=== PATIENT | male | born 1965 | race American Indian/Alaskan Native ===

== ENCOUNTER 2016-06-21 13:44 | Emergency (ER) | payer OTHER ==
--- NOTE | 2016-06-21 16:10 | XRay Report ---
Right knee 2 views: History: Fall. Findings: The articular surface of the medial and lateral compartment appears intact. There is suspicion of fracture noted inferior aspect of the patellae. Also no fluid in the suprapatellar bursa. Impression: Suspicion of fracture inferior patella. Radiographic of patella recommended.
[2016-06-21] MEDS ORDERED: ZOFRAN ODT PO ONE (16:43)
[2016-06-21] MEDS ORDERED: DILAUDID IM ONE (16:43)
[2016-06-21] MEDS ORDERED: TORADOL IM ONE (16:44)
[2016-06-21 18:27] VITALS: BP 114/66
--- NOTE | 2016-06-21 19:06 | Emergency Department Report ---
Entered by JUAN RAMON PATEL, acting as scribe for VIVIEN MALONE PA. ED Lower Extremity HPI - General Chief Complaint: Extremity Injury, Lower Stated Complaint: KNEE INJURY/PAIN Time Seen by Provider: 06/21/16 16:03 Source: patient, EMS Mode of arrival: Wheelchair Limitations: No Limitations - History of Present Illness Initial Comments: 51 year old male presents to the ED for evaluation of right knee pain today. Patient reports he was playing basketball this afternoon when he twisted his right knee and fell to ground. He reports pain with movement, weight bearing, and palpation of area but notes no pain with immobilization. Treatments prior to arrival include ice and pamela bandage but no medications. Denies any numbness or tingling to toes and states pain is localized to right knee. Denies hitting head, LOC, or additional injuries from fall. MD Complaint: knee injury, fall -: This afternoon Injury: Knee: Right (pain) Type of Injury: other ("twist") Place: other (basketball court) Severity: severe Severity scale (0 -10): 10 (with movement) Improves With: cold therapy, immobilization Worsens With: weight bearing, movement, palpation Context: fall, direct blow, other ("twisted" while playing basketball and fell to ground) Associated Symptoms: swelling, unable to bear weight. denies: numbness, tingling, ambulatory Treatments Prior to Arrival: cold therapy (ice), bandage (pamela bandage) - Related Data Previous Rx's Medication Instructions Recorded Last Taken Type Ibuprofen [Motrin] 600 mg PO Q8H PRN #21 tablet 06/21/16 Unknown Rx oxyCODONE /ACETAMINOPHEN [Percocet 1 tab PO Q6HR PRN #20 tablet 06/21/16 Unknown Rx 5/325] Allergies Allergy/AdvReac Type Severity Reaction Status Date / Time No Known Allergies Allergy Unverified 06/21/16 15:29 ED Review of Systems Comment: All other systems reviewed and negative Constitutional: no symptoms reported Respiratory: no symptoms reported Cardiovascular: denies: chest pain, palpitations, dyspnea on exertion, edema, syncope Gastrointestinal: denies: abdominal pain, nausea, vomiting Musculoskeletal: joint swelling, arthralgia, other (pain to right knee) Neurological: denies: headache, numbness, paresthesias, other (LOC) ED Past Medical Hx - Past Medical History Previous Medical History?: No - Surgical History Past Surgical History?: Yes Additional Surgical History: hip replacement - Family History Family history: hypertension - Social History Smoking Status: Never Smoker Substance Use Type: None - Medications Home Medications: Home Medications Medication Instructions Recorded Confirmed Last Taken Type Ibuprofen [Motrin] 600 mg PO Q8H PRN #21 tablet 06/21/16 Unknown Rx oxyCODONE /ACETAMINOPHEN [Percocet 1 tab PO Q6HR PRN #20 tablet 06/21/16 Unknown Rx 5/325] ED Physical Exam - General Limitations: No Limitations General appearance: alert, in no apparent distress - Head Head exam: Present: atraumatic, normocephalic - Expanded Head Exam Expanded Head exam: Absent: laceration, abrasion, contusion, hematoma, racoon eyes, ricketts's sign, general tenderness, tenderness of temporal artery, CSF rhinorrhea , CSF otorrhea - Eye Eye exam: Present: normal appearance, PERRL, EOMI. Absent: periorbital swelling , periorbital tenderness Pupils: Present: normal accommodation - ENT ENT exam: Present: normal exam, normal orophraynx, mucous membranes moist - Neck Neck exam: Present: normal inspection, full ROM. Absent: tenderness, lymphadenopathy, thyromegaly - Respiratory Respiratory exam: Present: normal lung sounds bilaterally. Absent: respiratory distress, wheezes, rales, rhonchi - Cardiovascular Cardiovascular Exam: Present: regular rate, normal rhythm, normal heart sounds. Absent: systolic murmur, diastolic murmur, rubs, gallop - GI/Abdominal GI/Abdominal exam: Present: soft, normal bowel sounds. Absent: distended, tenderness, guarding, rebound, rigid - Extremities Exam Extremities exam: Present: normal capillary refill (under 2 seconds), joint swelling. Absent: pedal edema, calf tenderness - Expanded Lower Extremity Exam Left Hip exam: Present: normal inspection, full ROM, pelvic stability. Absent: tenderness, swelling, abrasion, laceration, ecchymosis, deformity, crepidus, dislocation, erythema, external rotation, internal rotation, shortening Upper Leg exam: Present: normal inspection, full ROM. Absent: tenderness, swelling, abrasion, laceration, ecchymosis, deformity, crepidus, dislocation, erythema Knee exam: Present: normal inspection, full ROM, full knee extension. Absent: tenderness, swelling, abrasion, laceration, ecchymosis, deformity, crepidus, dislocation, erythema, effusion, pain w/ pronation/supination, posterior draw sign Lower Leg exam: Present: normal inspection, full ROM. Absent: tenderness, swelling, abrasion, laceration, ecchymosis, deformity, crepidus, dislocation, erythema, palpable cord, Eduardo's sign Ankle exam: Present: normal inspection, full ROM. Absent: tenderness, swelling , abrasion, laceration, ecchymosis, deformity, crepidus, dislocation, erythema Foot/Toe exam: Present: normal inspection, full ROM. Absent: tenderness, swelling, abrasion, laceration, ecchymosis, deformity, crepidus, dislocation, erythema, amputation, puncture wound, foreign body, calcaneal tenderness, tenderness at base of 5th metatarsal, nail avulsion, subungual hematoma Neuro vascular tendon exam: Present: no vascular compromise. Absent: pulse deficit, abnormal cap refill, motor deficit, sensory deficit, tendon deficit, extremity cold to touch, pallor, abnormal 2-point discrimination, decreased fine /light touch, foot drop, peroneal nerve deficit, significant pain with passive ROM of distal joint Gait: Positive: observed and normal, unable to bear weight Right Hip exam: Present: normal inspection, full ROM. Absent: tenderness, swelling, abrasion, deformity Upper Leg exam: Present: normal inspection, full ROM. Absent: tenderness, swelling, deformity Knee exam: Present: tenderness (anterior right knee), swelling (mild swelling anterior knee.), deformity, full knee extension. Absent: full ROM (unable to flex ), abrasion, laceration, crepidus, dislocation, erythema, effusion Lower Leg exam: Present: normal inspection, full ROM. Absent: tenderness Ankle exam: Present: normal inspection, full ROM. Absent: tenderness, swelling , abrasion, laceration, ecchymosis, deformity, crepidus, dislocation, erythema Foot/Toe exam: Present: normal inspection, full ROM. Absent: tenderness, swelling, abrasion, laceration, ecchymosis, deformity, crepidus, dislocation, erythema, amputation, puncture wound, foreign body, calcaneal tenderness, tenderness at base of 5th metatarsal, nail avulsion, subungual hematoma Neuro vascular tendon exam: Present: no vascular compromise. Absent: pulse deficit, abnormal cap refill, motor deficit, sensory deficit, tendon deficit, extremity cold to touch, pallor, abnormal 2-point discrimination, decreased fine /light touch, foot drop, peroneal nerve deficit, significant pain with passive ROM of distal joint Gait: Positive: unable to bear weight - Back Exam Back exam: Present: normal inspection, full ROM - Neurological Exam Neurological exam: Present: alert, oriented X3, abnormal gait (abnormal gait due to inability to bear right lower extremity) - Psychiatric Psychiatric exam: Present: normal affect, normal mood - Skin Skin exam: Present: warm, dry, intact, normal color. Absent: rash, cyanosis, pallor ED Course Vital Signs 06/21/16 06/21/16 15:29 18:27 Temperature 98.0 F Pulse Rate 58 L 62 Respiratory 20 18 Rate Blood Pressure 105/61 Blood Pressure 114/66 [Right] O2 Sat by Pulse 100 99 Oximetry - Reevaluation(s) Reevaluation #1: 06/21/16 16:41 given Dilaudid 1 mg IM and Zofran 4 mg ODT. - Orthopedic Splinting/Casting Injury #1 Side: right Lower Extremity Injury Location: knee Lower Extremity Immobilizer: knee immobilizer Other Orthopedic Equipment: crutches ED Lower Extremity MDM - Radiology Data Radiology results: report reviewed, image reviewed interpreted by me: Dr. Rodgers looks at radiology report and images in PACS system and he did not see any abnormalities. Right knee 2 views: History: Fall. Findings: The articular surface of the medial and lateral compartment appears intact. There is suspicion of fracture noted inferior aspect of the patellae. Also no fluid in the suprapatellar bursa. Impression: Suspicion of fracture inferior patella. Radiographic of patella recommended. Transcribed By: PTP Dictated By: DEMETRIUS DEL VALLE MD Electronically Authenticated By: DEMETRIUS DEL VALLE MD Signed Date/Time: 06/21/16 1601 - Medical Decision Making ED course: Radiologist read x-ray is suspicious for inferior patellar fracture. Dr. Evangelista did not see anything on x-ray films. advised by Dr. Rodgers to place patient in knee immobilizer and crutches and for him to follow-up with orthopedic . I discussed results and treatment plan with patient and he is in agreement. Patient with right knee injury and arthralgia frightening. he is unable to flex his right knee but is able to extend. Unable to perform valgus / varus laxity test on patient because of him not being able to bend his knee. See procedure note for splinting details. Patient has no neurovascular compromise and no signs of compartment syndrome. He is discharged home with prescription for Percocet and Motrin and to follow-up with orthopedic on Friday. ED Disposition Clinical Impression: Arthralgia of right knee Right knee injury Qualifiers: Encounter type: initial encounter Qualified Code(s): S89.91XA - Unspecified injury of right lower leg, initial encounter Contusion of right knee, initial encounter Qualifiers: Encounter type: initial encounter Qualified Code(s): S80.01XA - Contusion of right knee, initial encounter Disposition: DISCHARGED TO HOME OR SELFCARE Is pt being admited?: No Does the pt Need Aspirin: No Condition: Stable Instructions: Contusion in Adults (ED), Knee Pain (ED), Arthralgia (ED), Knee Immobilizer (ED) Additional Instructions: keep knee immobilizer on and to use orthopedic doctor. Do not weight-bear on the right lower extremity. Percocet can cause drowsiness. Please do not drive or operate heavy machinery while taking this medication. Call and Friday to schedule appointment for orthopedic follow-up. Prescriptions: Ibuprofen [Motrin] 600 mg PO Q8H PRN #21 tablet PRN Reason: Pain oxyCODONE /ACETAMINOPHEN [Percocet 5/325] 1 tab PO Q6HR PRN #20 tablet PRN Reason: Pain Referrals: CRYSTAL STEPHENSON MD [Staff Physician] - 06/24/16 Forms: Work/School Release Form(ED) This documentation as recorded by the JORGE devine REBEKAH,accurately reflects the service I personally performed and the decisions made by ,VIVIEN MALONE PA.
== END 2016-06-21 18:26 | disposition home or self-care (01) ==
LOC: ED 13:44
DX: S80.01XA Contusion of right knee, initial encounter (principal); W19.XXXA Unspecified fall, initial encounter; Y93.67 Activity, basketball; Y99.2 Volunteer activity; Y92.39 Other specified sports and athletic area as the place of occurrence of the external cause
CPT/HCPCS: 29505; 73560; 96372; 99284; J1170; J1885; Q0162